=== PATIENT | female | born 1930 | race Caucasian/White ===

== ENCOUNTER 2018-10-01 22:09 | Inpatient (IN) | payer MEDICARE ==
[2018-10-01] MEDS ORDERED: SODIUM CHLORIDE 0.9% 1,000 ML IV STA (22:53)
[2018-10-01] MEDS ORDERED: ONDANSETRON 4 MG/2 ML VIAL IVP STA (22:53)
--- NOTE | 2018-10-01 22:53 | ED ---
Weakness HPI - General Chief complaint: Weakness Stated complaint: Weakness Time Seen by Provider: 10/01/18 22:38 Source: patient, EMS - History of Present Illness Initial comments: Maria Luisa is a pleasant 87-year-old female who is brought to the emergency department today via EMS for evaluation of generalized malaise, nausea and vomiting. Patient reports she hasn't been feeling well for couple of days however she didn't seek any care because she didn't want to rule in the holidays for her family. Patient reports she's been fatigued, however loss of appetite and been much more tired than usual. Patient states that today she had no appetite but she did have [place] dinner with her son. Her son states that he only noticed that she took some few nibbles of her food. A couple hours after eating the patient became nauseated and had multiple episodes of nonbloody nonbilious emesis. At that point son decided to bring her to the emergency department however the patient was too weak to stand even with her assistance he could not get her to the car therefore decision was made to call EMS. Patient denies any chest pain palpitations or shortness of breath. She does report some recent loose stools. She has been in contact with people who have had some similar symptoms including nausea, vomiting and diarrhea. - Related Data Home Medications Medication Instructions Recorded Confirmed Rivaroxaban [Xarelto] 15 mg PO DAILY 11/03/17 10/01/18 Brimonidine Tartrate/Timolol 1 drop BOTH EYES BID 10/01/18 10/01/18 [Combigan 0.2%-0.5% Eye Drops] Allergies Allergy/AdvReac Type Severity Reaction Status Date / Time morphine AdvReac Intermediate Nausea & Verified 10/01/18 23:14 Vomiting Sulfa (Sulfonamide AdvReac Intermediate Nausea & Verified 10/01/18 23:14 Antibiotics) Vomiting Mwqylat-Vvg-Xhz Reductase AdvReac Nausea Verified 10/01/18 23:14 Inhibitor Review of Systems ROS Statement: Those systems with pertinent positive or pertinent negative responses have been documented in the HPI. ROS Other: All systems not noted in ROS Statement are negative. Past Medical History Past Medical History: Chest Pain / Angina, Hypertension Additional Past Medical History / Comment(s): hypokalemia History of Any Multi-Drug Resistant Organisms: None Reported Past Surgical History: Cholecystectomy, Pacemaker Additional Past Surgical History / Comment(s): thyroidectomy Past Anesthesia/Blood Transfusion Reactions: No Reported Reaction Additional Past Anesthesia/Blood Transfusion Reaction / Comment(s): NEVER RECIEVED BLOOD. Type of Cardiac Device: Permanent Pacemaker Device Placement Date:: 2015 Past Psychological History: No Psychological Hx Reported, Depression Smoking Status: Former smoker Past Alcohol Use History: Rare Past Drug Use History: None Reported - Past Family History Father Family Medical History: Cancer, COPD Additional Family Medical History / Comment(s): FATHER OF LUNG [place] Mother Family Medical History: Cancer Additional Family Medical History / Comment(s): MOTHER OF SOME FORM OF CA WHEN PT WAS 2 YRS OLD. General Exam - General Exam Comments Initial Comments: Physical Exam GENERAL: Elderly female, appears uncomfortable, appears nauseated HENT: Normocephalic, Atraumatic. Dry oral mucosa EYES: PERRL, EOMI PULMONARY: Unlabored respirations. No audible rales rhonchi or wheezing was noted. CARDIOVASCULAR: There is a regular rate and rhythm without any murmurs gallops or rubs. ABDOMEN: Soft with normal bowel sounds. Tenderness to palpation in the epigastrium SKIN: Skin is clear with no lesions or rashes and otherwise unremarkable. : Deferred NEUROLOGIC: Patient is alert and oriented x3. Moving all extremities spontaneously MUSCULOSKELETAL: Normal extremities with adequate strength and full range of motion. No lower extremity swelling or edema. No calf tenderness. PSYCHIATRIC: Normal psychiatric evaluation. Limitations: no limitations Course Vital Signs 10/01/18 22:11 Pulse Rate 92 Respiratory 16 Rate Blood Pressure 198/73 O2 Sat by Pulse 97 Oximetry EKG Findings - EKG Comments: EKG Findings:: EKG obtained at 10:22 PM, rate is 89 rhythm is sinus, there is a first-degree AV block, UT 260, QRS 84, QTC 462. No acute ST elevations or depressions no evidence of acute ischemia or infarction. Medical Decision Making - Medical Decision Making Patient was seen and evaluated, history was obtained from the patient and family at bedside Labs and imaging were ordered Labs with multiple mild abnormalities including mildly elevated transaminases, elevated bili, elevated lipase, leukocytosis Computed tomography scan was ordered Patient was reevaluated, some improvement in nausea after Zofran, IV fluids are infusing Urinalysis suggestive of urinary tract infection, culture was ordered, Rocephin ordered Given the patient's advanced age, persistent nausea, multiple lab abnormalities I do feel that she would benefit from being admitted to the hospital for IV fluid rehydration and reevaluation of her labs in the morning. Patient is agreeable to this. Admission orders were placed. - Lab Data Result diagrams: 10/01/18 22:15 10/01/18 22:15 Lab Results 10/01/18 10/01/18 10/01/18 Range/Units 22:15 22:15 22:15 WBC 5.9 (3.8-10.6) k/uL RBC 3.60 L (3.80-5.40) m/uL Hgb 12.4 (11.4-16.0) gm/dL Hct 38.9 (34.0-46.0) % MCV 108.2 H (80.0-100.0) fL MCH 34.5 (25.0-35.0) pg MCHC 31.9 (31.0-37.0) g/dL RDW 15.0 (11.5-15.5) % Plt Count 56 L (150-450) k/uL Neutrophils % 81 % Lymphocytes % 9 % Monocytes % 5 % Eosinophils % 3 % Basophils % 0 % Neutrophils # 4.8 (1.3-7.7) k/uL Lymphocytes # 0.5 L (1.0-4.8) k/uL Monocytes # 0.3 (0-1.0) k/uL Eosinophils # 0.1 (0-0.7) k/uL Basophils # 0.0 (0-0.2) k/uL Macrocytosis Marked Sodium 140 (137-145) mmol/L Potassium 3.9 (3.5-5.1) mmol/L Chloride 108 H (98-107) mmol/L Carbon Dioxide 24 (22-30) mmol/L Anion Gap 8 mmol/L BUN 19 H (7-17) mg/dL Creatinine 0.67 (0.52-1.04) mg/dL Est GFR (CKD-EPI)AfAm >90 (>60 ml/min/1.73 sqM) Est GFR (CKD-EPI)NonAf 79 (>60 ml/min/1.73 sqM) Glucose 126 H (74-99) mg/dL Calcium 8.6 (8.4-10.2) mg/dL Total Bilirubin 2.2 H (0.2-1.3) mg/dL AST 61 H (14-36) U/L ALT 36 (9-52) U/L Alkaline Phosphatase 135 H (38-126) U/L Total Creatine Kinase 88 (30-135) U/L CK-MB (CK-2) 1.1 (0.0-2.4) ng/mL CK-MB (CK-2) Rel Index 1.3 Troponin I <0.012 (0.000-0.034) ng/mL Total Protein 7.9 (6.3-8.2) g/dL Albumin 3.4 L (3.5-5.0) g/dL Amylase 68 (30-110) U/L Lipase 307 H (23-300) U/L Urine Color Urine Appearance (Clear) Urine pH (5.0-8.0) Ur Specific Wells (1.001-1.035) Urine Protein (Negative) Urine Glucose (UA) (Negative) Urine Ketones (Negative) Urine Blood (Negative) Urine Nitrite (Negative) Urine Bilirubin (Negative) Urine Urobilinogen (<2.0) mg/dL Ur Leukocyte Esterase (Negative) Urine RBC (0-5) /hpf Urine WBC (0-5) /hpf Ur Squamous Epith Cells (0-4) /hpf Urine Bacteria (None) /hpf Urine Mucus (None) /hpf 10/02/18 Range/Units 00:33 WBC (3.8-10.6) k/uL RBC (3.80-5.40) m/uL Hgb (11.4-16.0) gm/dL Hct (34.0-46.0) % MCV (80.0-100.0) fL MCH (25.0-35.0) pg MCHC (31.0-37.0) g/dL RDW (11.5-15.5) % Plt Count (150-450) k/uL Neutrophils % % Lymphocytes % % Monocytes % % Eosinophils % % Basophils % % Neutrophils # (1.3-7.7) k/uL Lymphocytes # (1.0-4.8) k/uL Monocytes # (0-1.0) k/uL Eosinophils # (0-0.7) k/uL Basophils # (0-0.2) k/uL Macrocytosis Sodium (137-145) mmol/L Potassium (3.5-5.1) mmol/L Chloride (98-107) mmol/L Carbon Dioxide (22-30) mmol/L Anion Gap mmol/L BUN (7-17) mg/dL Creatinine (0.52-1.04) mg/dL Est GFR (CKD-EPI)AfAm (>60 ml/min/1.73 sqM) Est GFR (CKD-EPI)NonAf (>60 ml/min/1.73 sqM) Glucose (74-99) mg/dL Calcium (8.4-10.2) mg/dL Total Bilirubin (0.2-1.3) mg/dL AST (14-36) U/L ALT (9-52) U/L Alkaline Phosphatase (38-126) U/L Total Creatine Kinase (30-135) U/L CK-MB (CK-2) (0.0-2.4) ng/mL CK-MB (CK-2) Rel Index Troponin I (0.000-0.034) ng/mL Total Protein (6.3-8.2) g/dL Albumin (3.5-5.0) g/dL Amylase (30-110) U/L Lipase (23-300) U/L Urine Color Yellow Urine Appearance Cloudy H (Clear) Urine pH 5.5 (5.0-8.0) Ur Specific Wells 1.022 (1.001-1.035) Urine Protein Trace H (Negative) Urine Glucose (UA) Negative (Negative) Urine Ketones Trace H (Negative) Urine Blood Small H (Negative) Urine Nitrite Negative (Negative) Urine Bilirubin Negative (Negative) Urine Urobilinogen 2.0 (<2.0) mg/dL Ur Leukocyte Esterase Large H (Negative) Urine RBC 10 H (0-5) /hpf Urine WBC 58 H (0-5) /hpf Ur Squamous Epith Cells 24 H (0-4) /hpf Urine Bacteria Occasional H (None) /hpf Urine Mucus Few H (None) /hpf Disposition Clinical Impression: Dehydration, Transaminitis, Elevated bilirubin, Nausea and vomiting, UTI ( urinary tract infection) Disposition: ADMITTED IP TO THIS HOSP Condition: Stable Is patient prescribed a controlled substance at d/c from ED?: No Referrals: Alec Davidson MD [Primary Care Provider] - 1-2 days
[2018-10-01 23:19] LABS: Basophils % (A) 0 %; Eosinophils # (A) 0.1 k/uL (0-0.7); Eosinophils % (A) 3 %; HCT 38.9 % (34.0-46.0); HGB 12.4 gm/dL (11.4-16.0); Lymphocytes # (A) 0.5 k/uL (1.0-4.8); Lymphocytes % (A) 9 %; MCH 34.5 pg (25.0-35.0); MCHC 31.9 g/dL (31.0-37.0); MCV 108.2 fL (80.0-100.0); Macrocytosis Marked; Mean Platelet Volume 9.3; Monocytes # (A) 0.3 k/uL (0-1.0); Monocytes % (A) 5 %; Neutrophils # (A) 4.8 k/uL (1.3-7.7); Neutrophils % (A) 81 %; WBC 5.9 k/uL (3.8-10.6)
[2018-10-01 23:20] LABS: ALT 36 U/L (9-52); AST 61 U/L (14-36); Albumin 3.4 g/dL (3.5-5.0); Alkaline Phosphatase 135 U/L (38-126); Amylase 68 U/L (30-110); Anion Gap 8 mmol/L; Blood Urea Nitrogen 19 mg/dL (7-17); Calcium 8.6 mg/dL (8.4-10.2); Carbon Dioxide 24 mmol/L (22-30); Chloride 108 mmol/L (98-107); Glucose 126 mg/dL (74-99); Lipase 307 U/L (23-300); Potassium 3.9 mmol/L (3.5-5.1); Sodium 140 mmol/L (137-145); Total Bilirubin 2.2 mg/dL (0.2-1.3); Total Protein 7.9 g/dL (6.3-8.2)
[2018-10-01 23:39] LABS: Creatine Kinase 88 U/L (30-135)
[2018-10-01 23:43] LABS: Platelet Count 56 k/uL (150-450)
[2018-10-01 23:52] LABS: Creatine Kinase MB 1.1 ng/mL (0.0-2.4); Troponin I <0.012 ng/mL (0.000-0.034)
--- NOTE | 2018-10-02 00:02 | XR ---
EXAMINATION TYPE: XR KUB DATE OF EXAM: 10/01/2018 COMPARISON: NONE HISTORY: Vomiting TECHNIQUE: 2 views upright FINDINGS: There is no sign of intestinal obstruction or pneumoperitoneum. Fecal pattern is normal. Carine ng bases appear clear. There are no pathologic calcifications over the kidneys. IMPRESSION: Nonacute abdomen.
[2018-10-02 01:36] LABS: Appearance,Urine Cloudy (Clear); Bacteria,Urine Occasional /hpf; Bilirubin,Urine Negative (Negative); Blood,Urine Small (Negative); Color,Urine Yellow; Glucose,Urine (UA) Negative (Negative); Ketones,Urine Trace (Negative); Leukocyte Esterase,Urine Large (Negative); Mucus,Urine Few /hpf; Nitrite,Urine Negative (Negative); PH, Urine 5.5 (5.0-8.0); Protein,Urine Trace (Negative); RBC,Urine 10 /hpf (0-5); Specific Gravity,Urine 1.022 (1.001-1.035); Squamous Epithelial Cell,Urine 24 /hpf (0-4); WBC,Urine 58 /hpf (0-5)
--- NOTE | 2018-10-02 01:52 | CT ---
EXAMINATION TYPE: CT abdomen pelvis w con DATE OF EXAM: 10/02/2018 COMPARISON: 11/06/2014 HISTORY: vomiting CT DLP: 792.5 mGycm Automated exposure control for dose reduction was used. TECHNIQUE: Helical acquisition of images was performed from the lung bases through the pelvis. CONTRAST: Performed without Oral Contrast and with IV Contrast, patient injected with 100 mL of Isovue 300. FINDINGS: There is left pleural effusion. Heart is enlarged. There is no pericardial effusion. There is small h iatal hernia. Lung bases are clear of consolidation. Liver shows no focal defect. Gallbladder appears absent. There are multiple tiny calcified splenic gr anulomata. There is no evidence of pancreatic mass. There is no adrenal mass. Kidneys show satisfactory contrast opacification. There is no hydronephrosi s. There is no retroperitoneal adenopathy. Abdominal aorta is atheromatous. Appendix is not seen. The re is no evidence of a bowel obstruction. Bladder distends smoothly. There is pessary in the vagina. There is no inguinal hernia. There is no free fluid in the pelvis. I see no mesenteric edema. There a re multiple small mesenteric lymph nodes. There is degenerative disc space narrowing the lumbar spine . I see no compression fracture. Bony pelvis is intact. There is mild anterior wedging of T10 vertebr a with 20% loss of height. This is probably old. Fracture is new compared to old CT scan. IMPRESSION: OLD GRANULOMATOUS DISEASE. SMALL LEFT PLEURAL EFFUSION UNCHANGED. SMALL HIATAL HERNIA. CARDIOMEGALY. NO EVIDENCE OF A BOWEL OBSTRUCTION.
[2018-10-02] MEDS ORDERED: NALOXONE 0.4 MG/ML 1 ML VIAL IV PRN (02:10)
[2018-10-02] MEDS: SODIUM CHLORIDE 0.9% 1,000 ML IV SCH ×2 (03:06→17:02)
[2018-10-02 03:57] VITALS: BMI 27.9
[2018-10-02] MEDS: FAMOTIDINE 20 MG TAB PO SCH ×2 (08:47→21:02)
[2018-10-02] MEDS: ONDANSETRON 4 MG/2 ML VIAL IVP PRN (15:48)
--- NOTE | 2018-10-02 17:16 | HP ---
HISTORY AND PHYSICAL CHIEF COMPLAINT: Generalized weakness, dehydration, nausea, vomiting, and probable UTI. HISTORY OF PRESENT ILLNESS: This is another admission for this 87-year-old white female. She is ordinarily in fairly good health. She has had some problems with mild hypertension and atrial fibrillation. For about 2 days she has not felt well, has not been eating well. On the night of admission she suddenly developed chills, weakness, nausea and vomiting and no diarrhea. She came to the emergency room, where she was dehydrated, and urine suggested that she had UTI. She was admitted. REVIEW OF SYSTEMS: She denies any headaches, confusion, cough, hemoptysis, shortness of breath, chest pain, abdominal pain, etc. Past medical history, family history, and personal and social histories are all otherwise unremarkable and noncontributory. She does not smoke. PHYSICAL EXAMINATION: Blood pressure is 136/83 with a pulse of 92 and regular. Respirations were 36 and she was afebrile. In general, she appeared to be pale and dehydrated. Skin was dry. Mucous membranes were dry. Head, ears, eyes, nose, mouth and throat were otherwise normal. There was no neck vein distention. Chest was clear. There were no rales or rhonchi. Cardiac exam demonstrated regular rate and rhythm. The abdomen was soft. Bowel sounds were heard. There were no masses or visceromegaly and she was not tender. Extremities were normal. Neurologically she was intact. She is admitted to the hospital with the diagnoses: 1. Probable urinary tract infection. 2. Dehydration. 3. History of atrial fibrillation. 4. History of hypertension. PLAN: 1. Bed rest. 2. IV fluids. 3. IV antibiotics. 4. Rehydrate. MMODL / IJN: [id number] /
[2018-10-02] MEDS: DEXTROSE 5%-0.45% NACL 1,000 ML IV SCH (18:29)
[2018-10-02] MEDS: BRIMONIDINE TARTRATE 0.2% DROPS 5 ML BTL BOTH EYES SCH (21:02)
[2018-10-02] MEDS: TIMOLOL 0.5% OPHTH DROPS 5 ML BTL BOTH EYES SCH (21:03)
[2018-10-02] MEDS ORDERED: ALBUTEROL NEBULIZED 2.5 MG/3 ML INHALATION PRN (21:17)
--- NOTE | 2018-10-02 21:57 | XR ---
EXAMINATION TYPE: XR chest 2V DATE OF EXAM: 10/02/2018 COMPARISON: 11/03/2017 HISTORY: Wheezing TECHNIQUE: Frontal and lateral views of the chest are obtained. FINDINGS: Heart is enlarged. There is pulmonary interstitial edema. There is slight blunting of cost ophrenic angles. There is left axillary pacemaker with the lead tips in the right ventricle. IMPRESSION: Mild heart failure. Small pleural effusions. Heart failure increased compared to last ex am.
[2018-10-02] MEDS: ALBUTEROL NEBULIZED 2.5 MG/3 ML INHALATION SCH (23:53)
[2018-10-03] MEDS: ALBUTEROL NEBULIZED 2.5 MG/3 ML INHALATION SCH ×5 (03:08→19:00)
[2018-10-03] MEDS: FAMOTIDINE 20 MG TAB PO SCH (08:29)
[2018-10-03] MEDS: BRIMONIDINE TARTRATE 0.2% DROPS 5 ML BTL BOTH EYES SCH ×2 (08:29→20:45)
[2018-10-03] MEDS: TIMOLOL 0.5% OPHTH DROPS 5 ML BTL BOTH EYES SCH ×2 (08:29→20:45)
[2018-10-03] MEDS ORDERED: RIVAROXABAN 15 MG TAB PO SCH (09:00)
[2018-10-03 09:59] LABS: Albumin 2.7 g/dL (3.5-5.0); Calcium 7.3 mg/dL (8.4-10.2); Magnesium 1.5 mg/dL (1.6-2.3); Potassium 3.9 mmol/L (3.5-5.1); Total Bilirubin 2.2 mg/dL (0.2-1.3); Total Protein 6.8 g/dL (6.3-8.2)
[2018-10-03 10:08] LABS: HCT 33.5 % (34.0-46.0); HGB 10.7 gm/dL (11.4-16.0); MCH 34.8 pg (25.0-35.0); MCHC 31.8 g/dL (31.0-37.0); MCV 109.3 fL (80.0-100.0); Macrocytosis Marked; Mean Platelet Volume 9.1; RBC 3.06 m/uL (3.80-5.40); WBC 2.3 k/uL (3.8-10.6)
[2018-10-03 10:29] LABS: Basophils # (M) 0.05 k/uL (0-0.2); Eosinophils # (M) 0.16 k/uL (0-0.7); Lymphocytes # (M) 0.32 k/uL (1.0-4.8); Monocytes # (M) 0.28 k/uL (0-1.0); Neutrophils % (M) 65 %; Nucleated Red Blood Cells 0 /100 WBC (0-0); Total Cells Counted 100
[2018-10-03 11:41] LABS: Platelet Count 41 k/uL (150-450)
[2018-10-03] MEDS ORDERED: CALCIUM CARBONATE 500 MG CHEWABLE PO PRN (13:46)
[2018-10-03 15:19] LABS: HCT 33.4 % (34.0-46.0); HGB 10.7 gm/dL (11.4-16.0); MCH 35.5 pg (25.0-35.0); MCHC 32.2 g/dL (31.0-37.0); MCV 110.3 fL (80.0-100.0); Macrocytosis Marked; Mean Platelet Volume 10.3; RBC 3.02 m/uL (3.80-5.40); RDW 14.9 % (11.5-15.5); Reticulocyte % 2.6 % (0.5-2.0); WBC 2.3 k/uL (3.8-10.6)
[2018-10-03 15:35] LABS: Amylase 54 U/L (30-110); LDH 826 U/L (313-618); Lipase 282 U/L (23-300)
[2018-10-03 15:53] LABS: INR 2.2 (<1.2); Partial Thromboplastin Time 39.3 sec (22.0-30.0); Prothrombin Time 21.6 sec (9.0-12.0)
[2018-10-03 16:26] LABS: Eosinophils # (M) 0.12 k/uL (0-0.7); Large Platelets Present; Lymphocytes # (M) 0.64 k/uL (1.0-4.8); Monocytes # (M) 0.46 k/uL (0-1.0); Neutrophils # (M) 1.08 k/uL (1.3-7.7); Neutrophils % (M) 47 %; Nucleated Red Blood Cells 0 /100 WBC (0-0); Platelet Count 35 k/uL (150-450); Total Cells Counted 100
[2018-10-03] MEDS: AMPICILLIN-SULBACTAM 1.5 GM in SODIUM CHLORIDE 0.9% 50 ML IVPB SCH ×2 (16:53→23:49)
--- NOTE | 2018-10-03 18:44 | PN ---
PROGRESS NOTE CHIEF COMPLAINT: Urinary tract infection. HISTORY OF PRESENT ILLNESS: This lady is doing a little bit better. Hydration is improved. She did have a little wheezing during the night, but no chest pain, fever, chills, cough, etc. Her CBC is surprising with a low WBC count, hemoglobin and platelet count. PHYSICAL EXAMINATION: Hydration is improved. Her chest is clear. There are no significant rales or rhonchi. Cardiac exam is normal. Abdomen is soft, nontender. IMPRESSION: 1. Urinary tract infection. 2. Pancytopenia. 3. Dehydration. PLAN: 1. Hematology consult. 2. Continue with IV fluids and antibiotics. MMODL / IJN: [id number] /
[2018-10-03] MEDS: DEXTROSE 5%-0.45% NACL 1,000 ML IV SCH ×3 (20:14→23:50)
[2018-10-03 21:37] LABS: Glucose,Whole Blood 139 mg/dL (75-99)
--- NOTE | 2018-10-03 23:15 | P.CONS ---
History of Present Illness - Reason for Consult Consult date: 10/03/18 Pancytopenia Requesting physician: Alec Davidson - Chief Complaint Weakness, UTI - History of Present Illness Ms. Menon is a pleasant 87 year old female who was initially seen by Dr Vivas in 2016 for intermitent lekopenia and thrombocytopenia. At this time her platelets ranged in the 35-40K range. Her prior history shows records of clumping of her platelets when drawn in a citrated CBC, therefore causing artefactually low platlet counts, which was felt to be underestimated. SHe did undergo full thrombocytopenia work-up at this intial consult without any identifiable evidence of differential etiology. Ms. Menon requires her platlet count to be ran in a citrate tube, but ran immediately, for a more accurate level to be obtained. She is on xarelto for known atrial fibrillation. She presented to hospital with increased weakness and currently being treated for UTI with antibiotics. Her resulted platlet count today is 35k. With her known history of underestimated thrombocytopenia, it is recommended her CBC in AM be drawn in a citrate tube and will be instructed to be ran immediately for a more accurate results, although there is some unavoidable delays in processing with this an accurate level maybe difficult to obtain. Since her baseline is a mild thrombocytopenia at the last follow-up with Ms. Menon it was felt she may have mild early signs of MDS or ITP. She was last seen by Dr. Vivas in early 2017. With her presentation of acute infection and a platlet count less than 50K without knowing if accurate result it is recommended to hold xarelto morning dose and attempt to obtain an immediate run sample, as acute infection may cause a further decrease in platlet counts. no evidence of acute bleeding noted, although she does present with lymphocytopenia and anemia this admission. Review of Systems A 14 point review of systems was assessed and completed and all negative except HPI Past Medical History Past Medical History: Atrial Fibrillation, Chest Pain / Angina, Hyperlipidemia, Hypertension, Syncope Additional Past Medical History / Comment(s): hypokalemia, 1st degree heart block, macular degeneration, glaucoma History of Any Multi-Drug Resistant Organisms: None Reported Past Surgical History: Cholecystectomy, Pacemaker Additional Past Surgical History / Comment(s): thyroidectomy Past Anesthesia/Blood Transfusion Reactions: No Reported Reaction Additional Past Anesthesia/Blood Transfusion Reaction / Comm: NEVER RECIEVED BLOOD. Type of Cardiac Device: Permanent Pacemaker Device Placement Date:: 2015 Past Psychological History: No Psychological Hx Reported, Depression Additional Psychological History / Comment(s): PT LIVES CURRENTLY WITH MOO GAYTAN) AND LUCILA'S . NORMALLY BEFORE THIS WEAKNESS SHE HAS BEEN INDEPENDENT WITH HER OWN ADL'S. SHE HAS VOLUNTARILY GIVEN UP DRIVING. Smoking Status: Former smoker Past Alcohol Use History: Rare Past Drug Use History: None Reported - Past Family History Father Family Medical History: Cancer, COPD Additional Family Medical History / Comment(s): FATHER OF LUNG [place] Mother Family Medical History: Cancer Additional Family Medical History / Comment(s): MOTHER OF SOME FORM OF CA WHEN PT WAS 2 YRS OLD. Medications and Allergies Home Medications Medication Instructions Recorded Confirmed Type Rivaroxaban [Xarelto] 15 mg PO DAILY 11/03/17 10/01/18 History Brimonidine Tartrate/Timolol 1 drop BOTH EYES BID 10/01/18 10/01/18 History [Combigan 0.2%-0.5% Eye Drops] Allergies Allergy/AdvReac Type Severity Reaction Status Date / Time morphine AdvReac Intermediate Nausea & Verified 10/01/18 23:14 Vomiting Sulfa (Sulfonamide AdvReac Intermediate Nausea & Verified 10/01/18 23:14 Antibiotics) Vomiting Whirhiw-Ndr-Fpg Reductase AdvReac Nausea Verified 10/01/18 23:14 Inhibitor Physical Exam Vitals: Vital Signs Temp Pulse Pulse Resp BP Pulse Ox 10/03/18 12:06 82 10/03/18 11:58 84 10/03/18 07:29 84 10/03/18 07:21 84 10/03/18 07:15 98.6 F 71 18 167/68 95 10/03/18 04:00 18 10/03/18 00:00 18 10/02/18 23:09 99.2 F 69 18 125/68 94 L 10/02/18 21:28 99.2 F 18 96 10/02/18 20:00 18 10/02/18 19:33 100.2 F H 76 18 101/61 93 L Intake and Output 10/02/18 10/03/18 10/03/18 22:59 06:59 14:59 Intake Total 836 354 Balance 836 354 Intake: Oral 836 354 Other: Voiding Method Toilet Toilet # Voids 2 3 - Constitutional General appearance: cooperative, no acute distress - EENT Eyes: EOMI, dentition normal ENT: hard of hearing, NA/AT, normal oropharynx - Neck no lymphadenopathy Neck: normal ROM - Respiratory Respiratory: bilateral: diminished (bases) - Cardiovascular Rhythm: irregularly irregular - Gastrointestinal General gastrointestinal: normal bowel sounds, soft - Integumentary Integumentary: pale - Neurologic Neurologic: CNII-XII intact - Musculoskeletal Musculoskeletal: generalized weakness, strength equal bilaterally - Psychiatric Psychiatric: appropriate affect Results CBC & Chem 7: 10/03/18 14:49 10/03/18 08:58 Labs: Abnormal Lab Results - Last 24 Hours (Table) 10/03/18 10/03/18 Range/Units 08:58 08:58 WBC 2.3 L (3.8-10.6) k/uL RBC 3.06 L (3.80-5.40) m/uL Hgb 10.7 L (11.4-16.0) gm/dL Hct 33.5 L (34.0-46.0) % MCV 109.3 H (80.0-100.0) fL Plt Count 41 L (150-450) k/uL Lymphocytes # (Manual) 0.32 L (1.0-4.8) k/uL Chloride 108 H (98-107) mmol/L BUN 18 H (7-17) mg/dL Glucose 169 H (74-99) mg/dL Calcium 7.3 L (8.4-10.2) mg/dL Magnesium 1.5 L (1.6-2.3) mg/dL Total Bilirubin 2.2 H (0.2-1.3) mg/dL AST 89 H (14-36) U/L Albumin 2.7 L (3.5-5.0) g/dL Microbiology - Last 24 Hours (Table) 10/02/18 00:33 Urine Culture - Preliminary Urine,Clean Catch Presumptive Staph aureus Chest x-ray: report reviewed CT scan - abdomen: report reviewed CT scan - pelvis: report reviewed Assessment and Plan Plan: Assessment and Recommendations: 1. 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 Will attempt to re-drawn in am 12-28 , and run immediately. Although with concurrent acute infection cannot rule out accurate thrombocytopenia as her history has a mild thrombocytopenia at baseline and an infection may contribute to worsening of this. - Redraw in citrate tube and run immediately - Re-work-up other causes (greater than 2 years, last 2015) - Patient is on Xarelto, would currently hold with platlet count less than 50K. To ensure an accurate level for safety. - INR increased (possible component of decreased appetite and vitamin K deficiency), monitor and recheck in am We will continue to follow.
[2018-10-04] MEDS: ALBUTEROL NEBULIZED 2.5 MG/3 ML INHALATION SCH ×7 (00:53→23:20)
[2018-10-04 03:50] LABS: Protein, Total 5.9 g/dL (6.2-8.2)
[2018-10-04 04:18] LABS: Hemoglobin A1C 6.1 % (4.0-6.0)
[2018-10-04 04:32] LABS: Iron Saturation 19.75 (12.00-45.00)
[2018-10-04 05:14] LABS: Folate, Serum 15.5 ng/mL
[2018-10-04 05:48] LABS: Basophils % (A) 0 %; Eosinophils # (A) 0.2 k/uL (0-0.7); Eosinophils % (A) 8 %; Lymphocytes # (A) 0.6 k/uL (1.0-4.8); Lymphocytes % (A) 22 %; MCH 34.8 pg (25.0-35.0); MCHC 32.1 g/dL (31.0-37.0); MCV 108.7 fL (80.0-100.0); Macrocytosis Marked; Mean Platelet Volume 11.8; Monocytes # (A) 0.4 k/uL (0-1.0); Monocytes % (A) 13 %; Neutrophils # (A) 1.5 k/uL (1.3-7.7); Neutrophils % (A) 53 %; RDW 14.7 % (11.5-15.5)
[2018-10-04 05:50] LABS: INR 1.7 (<1.2); Prothrombin Time 16.9 sec (9.0-12.0)
[2018-10-04 06:08] LABS: ALT 39 U/L (9-52); AST 79 U/L (14-36); Albumin 2.5 g/dL (3.5-5.0); Alkaline Phosphatase 103 U/L (38-126); Anion Gap 6 mmol/L; Blood Urea Nitrogen 12 mg/dL (7-17); Calcium 7.3 mg/dL (8.4-10.2); Carbon Dioxide 23 mmol/L (22-30); Chloride 109 mmol/L (98-107); Glucose 140 mg/dL (74-99); Potassium 3.9 mmol/L (3.5-5.1); Sodium 138 mmol/L (137-145); Total Bilirubin 1.5 mg/dL (0.2-1.3); Total Protein 6.5 g/dL (6.3-8.2)
[2018-10-04 06:16] LABS: Platelet Count 43 k/uL (150-450)
[2018-10-04 06:25] LABS: HGB 10.7 gm/dL (11.4-16.0); RBC 3.08 m/uL (3.80-5.40)
[2018-10-04 06:26] LABS: HCT 33.7 % (34.0-46.0)
[2018-10-04 06:43] LABS: Hepatitis A Antibody IgM Non-Reactive (Non-Reactive); Hepatitis B Core IgM Non-Reactive (Non-Reactive)
[2018-10-04 07:25] LABS: Anisocytosis (M) Present; Polychromasia Present
[2018-10-04 07:36] LABS: Glucose,Whole Blood 140 mg/dL (75-99)
[2018-10-04] MEDS: FAMOTIDINE 20 MG TAB PO SCH (08:39)
[2018-10-04] MEDS: AMPICILLIN-SULBACTAM 1.5 GM in SODIUM CHLORIDE 0.9% 50 ML IVPB SCH ×2 (08:39→17:21)
[2018-10-04] MEDS: DEXTROSE 5%-0.45% NACL 1,000 ML IV SCH ×2 (08:40→17:24)
[2018-10-04] MEDS: BRIMONIDINE TARTRATE 0.2% DROPS 5 ML BTL BOTH EYES SCH ×2 (08:40→19:53)
[2018-10-04] MEDS: TIMOLOL 0.5% OPHTH DROPS 5 ML BTL BOTH EYES SCH ×2 (08:40→19:53)
[2018-10-04 12:27] LABS: Glucose,Whole Blood 130 mg/dL (75-99)
--- NOTE | 2018-10-04 12:39 | P.PN ---
Subjective Progress Note Date: 10/04/18 Principal diagnosis: pancytopenia Platlet count redraw 42K today. Objective - Vital Signs Vital signs: Vital Signs Temp 98.3 F 10/04/18 06:30 Pulse 72 10/04/18 11:39 Resp 18 10/04/18 06:30 BP 178/73 10/04/18 06:30 Pulse Ox 95 10/04/18 06:30 Intake & Output 10/03/18 10/04/18 10/04/18 18:59 06:59 18:59 Intake Total 554 Balance 554 Weight 73.9 kg Intake: Oral 554 Other: Voiding Method Toilet Toilet # Voids 1 3 - Exam - Constitutional General appearance: cooperative, no acute distress - EENT Eyes: EOMI, dentition normal ENT: hard of hearing, NA/AT, normal oropharynx - Neck no lymphadenopathy Neck: normal ROM - Respiratory Respiratory: bilateral: diminished (bases) - Cardiovascular Rhythm: irregularly irregular - Gastrointestinal General gastrointestinal: normal bowel sounds, soft - Integumentary Integumentary: pale - Neurologic Neurologic: CNII-XII intact - Musculoskeletal Musculoskeletal: generalized weakness, strength equal bilaterally - Psychiatric Psychiatric: appropriate affect - Labs CBC & Chem 7: 10/04/18 05:15 10/04/18 05:15 Labs: Abnormal Lab Results - Last 24 Hours (Table) 10/03/18 10/03/18 10/03/18 Range/Units 14:49 14:49 14:58 WBC 2.3 L (3.8-10.6) k/uL RBC 3.02 L (3.80-5.40) m/uL Hgb 10.7 L (11.4-16.0) gm/dL Hct 33.4 L (34.0-46.0) % MCV 110.3 H (80.0-100.0) fL MCH 35.5 H (25.0-35.0) pg Plt Count 35 L (150-450) k/uL Neutrophils # (Manual) 1.08 L (1.3-7.7) k/uL Lymphocytes # (1.0-4.8) k/uL Lymphocytes # (Manual) 0.64 L (1.0-4.8) k/uL Retic Count 2.6 H (0.5-2.0) % PT 21.6 H (9.0-12.0) sec INR 2.2 H (<1.2) APTT 39.3 H (22.0-30.0) sec Chloride (98-107) mmol/L Glucose (74-99) mg/dL POC Glucose (mg/dL) (75-99) mg/dL Hemoglobin A1c (4.0-6.0) % Calcium (8.4-10.2) mg/dL Total Bilirubin (0.2-1.3) mg/dL AST (14-36) U/L Lactate Dehydrogenase 826 H (313-618) U/L Total Protein (PEP) (6.2-8.2) g/dL Albumin (3.5-5.0) g/dL 10/03/18 10/03/18 10/03/18 Range/Units 14:58 14:58 21:18 WBC (3.8-10.6) k/uL RBC (3.80-5.40) m/uL Hgb (11.4-16.0) gm/dL Hct (34.0-46.0) % MCV (80.0-100.0) fL MCH (25.0-35.0) pg Plt Count (150-450) k/uL Neutrophils # (Manual) (1.3-7.7) k/uL Lymphocytes # (1.0-4.8) k/uL Lymphocytes # (Manual) (1.0-4.8) k/uL Retic Count (0.5-2.0) % PT (9.0-12.0) sec INR (<1.2) APTT (22.0-30.0) sec Chloride (98-107) mmol/L Glucose (74-99) mg/dL POC Glucose (mg/dL) 139 H (75-99) mg/dL Hemoglobin A1c 6.1 H (4.0-6.0) % Calcium (8.4-10.2) mg/dL Total Bilirubin (0.2-1.3) mg/dL AST (14-36) U/L Lactate Dehydrogenase (313-618) U/L Total Protein (PEP) 5.9 L (6.2-8.2) g/dL Albumin (3.5-5.0) g/dL 10/04/18 10/04/18 10/04/18 Range/Units 05:15 05:15 05:15 WBC 3.0 L (3.8-10.6) k/uL RBC 3.08 L (3.80-5.40) m/uL Hgb 10.7 L (11.4-16.0) gm/dL Hct 33.7 L (34.0-46.0) % MCV 108.7 H (80.0-100.0) fL MCH (25.0-35.0) pg Plt Count 43 L (150-450) k/uL Neutrophils # (Manual) (1.3-7.7) k/uL Lymphocytes # 0.6 L (1.0-4.8) k/uL Lymphocytes # (Manual) (1.0-4.8) k/uL Retic Count (0.5-2.0) % PT 16.9 H (9.0-12.0) sec INR 1.7 H (<1.2) APTT (22.0-30.0) sec Chloride 109 H (98-107) mmol/L Glucose 140 H (74-99) mg/dL POC Glucose (mg/dL) (75-99) mg/dL Hemoglobin A1c (4.0-6.0) % Calcium 7.3 L (8.4-10.2) mg/dL Total Bilirubin 1.5 H (0.2-1.3) mg/dL AST 79 H (14-36) U/L Lactate Dehydrogenase (313-618) U/L Total Protein (PEP) (6.2-8.2) g/dL Albumin 2.5 L (3.5-5.0) g/dL 10/04/18 10/04/18 Range/Units 07:34 12:25 WBC (3.8-10.6) k/uL RBC (3.80-5.40) m/uL Hgb (11.4-16.0) gm/dL Hct (34.0-46.0) % MCV (80.0-100.0) fL MCH (25.0-35.0) pg Plt Count (150-450) k/uL Neutrophils # (Manual) (1.3-7.7) k/uL Lymphocytes # (1.0-4.8) k/uL Lymphocytes # (Manual) (1.0-4.8) k/uL Retic Count (0.5-2.0) % PT (9.0-12.0) sec INR (<1.2) APTT (22.0-30.0) sec Chloride (98-107) mmol/L Glucose (74-99) mg/dL POC Glucose (mg/dL) 140 H 130 H (75-99) mg/dL Hemoglobin A1c (4.0-6.0) % Calcium (8.4-10.2) mg/dL Total Bilirubin (0.2-1.3) mg/dL AST (14-36) U/L Lactate Dehydrogenase (313-618) U/L Total Protein (PEP) (6.2-8.2) g/dL Albumin (3.5-5.0) g/dL Microbiology - Last 24 Hours (Table) 10/02/18 00:33 Urine Culture - Final Urine,Clean Catch Staphylococcus aureus Assessment and Plan Plan: Assessment and Recommendations: 1. 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 Will attempt to re-drawn in am 12-28 , and run immediately. Although with concurrent acute infection cannot rule out accurate thrombocytopenia as her history has a mild thrombocytopenia at baseline and an infection may contribute to worsening of this. - Re-work-up other causes (greater than 2 years, last 2015) - Patient is on Xarelto, would currently hold with platlet count less than 50K. To ensure an accurate level for safety. - Redraw in citrate tube and run immediately again on 10/05/18, may resume xarelto as long as closer to 50K in am. We will continue to follow.
--- NOTE | 2018-10-04 12:56 | CDI ---
Documentation Clarification Form Date: 10/04/2018 12:50:50 PM From: Salina PetersenRaiHERMELINDA wilks, CCDS Admit Date: 10/02/2018 11:04:00 PM Patient Name: Maria Luisa Menon Visit Number: [id number] Discharge Date: ATTENTION: The Clinical Documentation Specialists (CDI) and [facility] Coding Staff appreciate your assistance in clarifying documentation. Please respond to the clarification below the line at the bottom and electronically sign. The CDI & [facility] Coding staff will review the response and follow-up if needed. Please note: Queries are made part of the Legal Health Record. If you have any questions, please contact the author of this message via ITS. Dr. Alec Davidson: Atrial Fibrillation is documented in the ED note & History & Physical. Patient is on Xarelto for Atrial fibrillation.. History/Risk Factors: A Fib, Thrombocytopenia, Hypertension, Clinical Indicators: Presented with malaise, nausea & vomiting. HR 92 - 82 - 72 EKG/telemetry: R 89 sinus rhythm w/1st deg AV block, Right atrial enlargement, Anterior infarct, age undetermined; T wave abn consider inferior ischemia. Treatment: IV Zofran, IV fluid bolus, IV Rocephin, IV Dextrose/Na Cl Consults: Hematology re low platelets, ruling out MDS or ITP. In your professional opinion, can you please clarify the type of Atrial Fibrillation, if known? Chronic/Permanent Paroxysmal Persistent Other, please specify Unable to determine (Last Revision: January 2018) MTDD
[2018-10-04] MEDS: LISINOPRIL 20 MG TAB PO SCH (18:50)
[2018-10-05] MEDS: AMPICILLIN-SULBACTAM 1.5 GM in SODIUM CHLORIDE 0.9% 50 ML IVPB SCH ×3 (00:24→15:38)
[2018-10-05] MEDS: DEXTROSE 5%-0.45% NACL 1,000 ML IV SCH ×3 (00:27→15:39)
[2018-10-05] MEDS: ALBUTEROL NEBULIZED 2.5 MG/3 ML INHALATION SCH ×6 (03:56→23:32)
[2018-10-05] MEDS: LISINOPRIL 20 MG TAB PO SCH (08:06)
[2018-10-05] MEDS: FAMOTIDINE 20 MG TAB PO SCH (08:06)
[2018-10-05] MEDS: BRIMONIDINE TARTRATE 0.2% DROPS 5 ML BTL BOTH EYES SCH ×2 (08:35→21:47)
[2018-10-05] MEDS: TIMOLOL 0.5% OPHTH DROPS 5 ML BTL BOTH EYES SCH ×2 (08:36→21:47)
[2018-10-05 10:05] LABS: MCH 35.7 pg (25.0-35.0); MCHC 33.4 g/dL (31.0-37.0); MCV 106.8 fL (80.0-100.0); Macrocytosis Moderate; RDW 14.8 % (11.5-15.5)
[2018-10-05 10:12] LABS: HGB 11.7 gm/dL (11.4-16.0); Mean Platelet Volume 9.8; RBC 3.28 m/uL (3.80-5.40); WBC 3.5 k/uL (3.8-10.6)
[2018-10-05 10:13] LABS: Platelet Count 51 k/uL (150-450)
[2018-10-05 12:27] LABS: Band Neutrophils % 1 %; Eosinophils # (M) 0.14 k/uL (0-0.7); Monocytes # (M) 0.32 k/uL (0-1.0); Neutrophils % (M) 66 %; Nucleated Red Blood Cells 0 /100 WBC (0-0); Total Cells Counted 100
--- NOTE | 2018-10-05 14:01 | P.PN ---
Subjective Progress Note Date: 10/05/18 Principal diagnosis: pancytopenia Platlet count greater than 50K, will restart Xarelto and check CMP Objective - Vital Signs Vital signs: Vital Signs Temp 98.9 F 10/05/18 06:00 Pulse 72 10/05/18 11:59 Resp 16 10/05/18 11:49 BP 156/75 10/05/18 06:00 Pulse Ox 94 L 10/05/18 06:00 Intake & Output 10/04/18 10/05/18 10/05/18 18:59 06:59 18:59 Intake Total 900 200 200 Balance 900 200 200 Weight 73.9 kg Intake: Oral 900 200 200 Other: # Voids 2 2 - Exam - Constitutional General appearance: cooperative, no acute distress - EENT Eyes: EOMI, dentition normal ENT: hard of hearing, NA/AT, normal oropharynx - Neck no lymphadenopathy Neck: normal ROM - Respiratory Respiratory: bilateral: diminished (bases), expiratory wheezes noted - Cardiovascular Rhythm: irregularly irregular - Gastrointestinal General gastrointestinal: normal bowel sounds, soft - Integumentary Integumentary: pale - Neurologic Neurologic: CNII-XII intact - Musculoskeletal Musculoskeletal: generalized weakness, strength equal bilaterally - Psychiatric Psychiatric: appropriate affect - Labs CBC & Chem 7: 10/05/18 07:59 10/05/18 14:37 Labs: Abnormal Lab Results - Last 24 Hours (Table) 10/03/18 10/05/18 Range/Units 14:58 07:59 WBC 3.5 L (3.8-10.6) k/uL RBC 3.28 L (3.80-5.40) m/uL MCV 106.8 H (80.0-100.0) fL MCH 35.7 H (25.0-35.0) pg Plt Count 51 L (150-450) k/uL Lymphocytes # (Manual) 0.70 L (1.0-4.8) k/uL IgG 2180.0 H (700.0-1600.0) mg/dL IgA 668.0 H (60.0-350.0) mg/dL Microbiology - Last 24 Hours (Table) 10/02/18 00:33 Urine Culture - Final Urine,Clean Catch Staphylococcus aureus Assessment and Plan Plan: Assessment and Recommendations: 1. 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 Will attempt to re-drawn in am 12-28 , and run immediately. Although with concurrent acute infection cannot rule out accurate thrombocytopenia as her history has a mild thrombocytopenia at baseline and an infection may contribute to worsening of this. - Re-work-up other causes (greater than 2 years, last 2015) - Redraw in citrate tube and run immediately again on 10/06/18, in mean time may resume xarelto as platlet count is greater than 50K today - Would monitor to ensure this remains above 50K for next 24-48 hours. - Discussed in full with patient today - Encourage patient to increase activity, with assistance, if PT is not already following may benefot from consultation to decrease debility and muscle atrophy, also recommend incentive spirometer to bedside. Physcian Attestation: I have completed the full history and physical of this patient and agree with above dictation by Sharon Amaya NP Dictated as a scribe. We will continue to follow.
[2018-10-05 15:15] LABS: ALT 39 U/L (9-52); AST 63 U/L (14-36); Albumin 2.5 g/dL (3.5-5.0); Alkaline Phosphatase 98 U/L (38-126); Anion Gap 5 mmol/L; Blood Urea Nitrogen 11 mg/dL (7-17); Calcium 7.9 mg/dL (8.4-10.2); Carbon Dioxide 24 mmol/L (22-30); Chloride 108 mmol/L (98-107); Glucose 161 mg/dL (74-99); Potassium 3.9 mmol/L (3.5-5.1); Sodium 137 mmol/L (137-145); Total Bilirubin 1.3 mg/dL (0.2-1.3); Total Protein 6.5 g/dL (6.3-8.2)
[2018-10-05] MEDS: RIVAROXABAN 15 MG TAB PO SCH (15:38)
--- NOTE | 2018-10-05 15:43 | PN ---
PROGRESS NOTE DATE OF SERVICE: 10/04/2018. CHIEF COMPLAINT: Urinary tract infection, pancytopenia and hypertension. HISTORY OF PRESENT ILLNESS: This lady is doing fairly well and she is improving as she is rehydrated. Blood pressure did rise and this will be treated. PHYSICAL EXAM: Color is better and hydration is improved. Chest is clear. Cardiac exam is normal. Abdomen is soft, nontender. IMPRESSION: 1. Urinary tract infection. 2. Septicemia. 3. Pancytopenia. 4. Hypertension. PLAN: 1. Continue evaluation of her pancytopenia. 2. Continue with IV antibiotics. 3. Continue with rehydration. 4. Treat hypertension. MMODL / IJN: [id number] /
--- NOTE | 2018-10-05 16:37 | PN ---
PROGRESS NOTE CHIEF COMPLAINT: Urinary tract infection, pancytopenia and hypertension. HISTORY OF PRESENT ILLNESS: This lady is doing a little bit better. Blood pressure is down. She is feeling a little bit better. She has no fever, chills, nausea, abdominal pain, etc. PHYSICAL EXAM: Chest is clear. Cardiac exam is normal. Abdomen is soft and nontender. She is a little bit wheezy. IMPRESSION: 1. Urinary tract infection. 2. Hypertension. 3. Mild bronchospasm. PLAN: No change in program at this time, except to possibly start updrafts if she continues to have difficulty. MMODL / IJN: [id number] /
[2018-10-06] MEDS: AMPICILLIN-SULBACTAM 1.5 GM in SODIUM CHLORIDE 0.9% 50 ML IVPB SCH ×3 (00:32→15:35)
[2018-10-06] MEDS: ALBUTEROL NEBULIZED 2.5 MG/3 ML INHALATION SCH ×5 (03:37→21:01)
[2018-10-06] MEDS: DEXTROSE 5%-0.45% NACL 1,000 ML IV SCH ×3 (03:54→15:35)
[2018-10-06] MEDS: ONDANSETRON 4 MG/2 ML VIAL IVP PRN (03:55)
[2018-10-06 07:20] LABS: MCHC 32.4 g/dL (31.0-37.0); MCV 107.9 fL (80.0-100.0); Macrocytosis Marked; Mean Platelet Volume 10.5
[2018-10-06] MEDS: TIMOLOL 0.5% OPHTH DROPS 5 ML BTL BOTH EYES SCH ×2 (08:04→20:55)
[2018-10-06] MEDS: BRIMONIDINE TARTRATE 0.2% DROPS 5 ML BTL BOTH EYES SCH ×2 (08:04→20:55)
[2018-10-06] MEDS: LISINOPRIL 20 MG TAB PO SCH (08:05)
[2018-10-06] MEDS: RIVAROXABAN 15 MG TAB PO SCH (08:05)
[2018-10-06] MEDS: FAMOTIDINE 20 MG TAB PO SCH (08:05)
[2018-10-06 08:12] LABS: WBC 4.4 k/uL (3.8-10.6)
[2018-10-06 08:13] LABS: HCT 33.2 % (34.0-46.0); HGB 10.8 gm/dL (11.4-16.0); RBC 3.08 m/uL (3.80-5.40)
[2018-10-06 09:30] LABS: Band Neutrophils % 1 %; Eosinophils # (M) 0.13 k/uL (0-0.7); Lymphocytes # (M) 0.53 k/uL (1.0-4.8); Monocytes # (M) 0.57 k/uL (0-1.0); Neutrophils % (M) 71 %; Nucleated Red Blood Cells 0 /100 WBC (0-0); Total Cells Counted 100
[2018-10-06 09:32] LABS: Platelet Count 46 k/uL (150-450)
--- NOTE | 2018-10-06 14:37 | P.PN ---
Subjective Progress Note Date: 10/06/18 Principal diagnosis: pancytopenia Platlet count 46, today, no s/s of bleeding Objective - Vital Signs Vital signs: Vital Signs Temp 98.8 F 10/06/18 06:00 Pulse 72 10/06/18 11:34 Resp 20 10/06/18 06:00 BP 153/64 10/06/18 06:00 Pulse Ox 95 10/06/18 06:00 Intake & Output 10/05/18 10/06/18 10/06/18 18:59 06:59 18:59 Intake Total 400 300 Balance 400 300 Intake: Oral 400 300 Other: # Voids 5 2 1 # Bowel Movements 0 - Exam - Constitutional General appearance: cooperative, no acute distress - EENT Eyes: EOMI, dentition normal ENT: hard of hearing, NA/AT, normal oropharynx - Neck no lymphadenopathy Neck: normal ROM - Respiratory Respiratory: bilateral: diminished (bases), expiratory wheezes noted - Cardiovascular Rhythm: irregularly irregular - Gastrointestinal General gastrointestinal: normal bowel sounds, soft - Integumentary Integumentary: pale - Neurologic Neurologic: CNII-XII intact - Musculoskeletal Musculoskeletal: generalized weakness, strength equal bilaterally - Psychiatric Psychiatric: appropriate affect - Labs CBC & Chem 7: 10/06/18 06:53 10/05/18 14:37 Labs: Abnormal Lab Results - Last 24 Hours (Table) 10/05/18 10/06/18 Range/Units 14:37 06:53 RBC 3.08 L (3.80-5.40) m/uL Hgb 10.8 L (11.4-16.0) gm/dL Hct 33.2 L (34.0-46.0) % MCV 107.9 H (80.0-100.0) fL Plt Count 46 L (150-450) k/uL Lymphocytes # (Manual) 0.53 L (1.0-4.8) k/uL Chloride 108 H (98-107) mmol/L Glucose 161 H (74-99) mg/dL Calcium 7.9 L (8.4-10.2) mg/dL AST 63 H (14-36) U/L Albumin 2.5 L (3.5-5.0) g/dL Assessment and Plan Plan: Assessment and Recommendations: 1. 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 Will attempt to re-drawn in am 12-28 , and run immediately. Although with concurrent acute infection cannot rule out accurate thrombocytopenia as her history has a mild thrombocytopenia at baseline and an infection may contribute to worsening of this. - Re-work-up other causes (greater than 2 years, last 2015) - Redraw in citrate tube and run immediately again on 10/06/18, in mean time may resume xarelto as long as no s/s of bleeding and platelet count remains above 45 - Would monitor to ensure this remains above 50K for next 24-48 hours. - Discussed in full with patient today - Encourage patient to increase activity, with assistance, if PT is not already following may benefot from consultation to decrease debility and muscle atrophy, also recommend incentive spirometer to bedside. Physcian Attestation: I have completed the full history and physical of this patient and agree with above dictation by Sharon Amaya NP Dictated as a scribe. We will continue to follow.
--- NOTE | 2018-10-06 15:54 | MISC ---
MISCELLANOUS REPORT Atrial fibrillation is chronic and permanent. MMODL / IJN: [id number] /
--- NOTE | 2018-10-06 17:18 | PN ---
PROGRESS NOTE DATE OF SERVICE: 10/06/2018 CHIEF COMPLAINT: Dehydration, urinary tract infection and pancytopenia. HISTORY OF PRESENT ILLNESS: This lady seems to be doing fairly well and bone marrow status is fairly stable. If things continue along these lines, she could probably go home in the next day or 2. PHYSICAL EXAM: She remains slightly pale. Her hydration is improved. Chest is improved. She is less short of breath. Cardiac exam is normal. Abdomen is soft, nontender. IMPRESSION: 1. Urinary tract infection. 2. Mild bronchospasm. 3. Pancytopenia. PLAN: Continue with current program and if she remains stable, she could probably go home in a day or 2. Will also investigate possibility of congestive heart failure. MMODL / IJN: [id number] /
[2018-10-07] MEDS: ALBUTEROL NEBULIZED 2.5 MG/3 ML INHALATION SCH ×6 (00:09→20:40)
[2018-10-07] MEDS: AMPICILLIN-SULBACTAM 1.5 GM in SODIUM CHLORIDE 0.9% 50 ML IVPB SCH ×4 (00:27→23:15)
[2018-10-07] MEDS: DEXTROSE 5%-0.45% NACL 1,000 ML IV SCH ×4 (04:06→23:16)
[2018-10-07] MEDS: FAMOTIDINE 20 MG TAB PO SCH (08:34)
[2018-10-07] MEDS: LISINOPRIL 20 MG TAB PO SCH (08:34)
[2018-10-07 11:40] LABS: Albumin 2.48 g/dL (3.80-4.90); Gamma Globulin 1.97 g/dL (0.70-1.50)
[2018-10-07] MEDS: TIMOLOL 0.5% OPHTH DROPS 5 ML BTL BOTH EYES SCH ×2 (12:20→20:03)
[2018-10-07] MEDS: BRIMONIDINE TARTRATE 0.2% DROPS 5 ML BTL BOTH EYES SCH ×2 (12:20→20:03)
[2018-10-07 13:57] LABS: HCT 34.1 % (34.0-46.0); HGB 10.7 gm/dL (11.4-16.0); MCH 34.5 pg (25.0-35.0); MCHC 31.2 g/dL (31.0-37.0); MCV 110.4 fL (80.0-100.0); Macrocytosis Marked; Mean Platelet Volume 10.8; RBC 3.09 m/uL (3.80-5.40); RDW 15.2 % (11.5-15.5); WBC 3.9 k/uL (3.8-10.6)
[2018-10-07 14:10] LABS: Band Neutrophils % 7 %; Basophils # (M) 0.04 k/uL (0-0.2); Eosinophils # (M) 0.16 k/uL (0-0.7); Lymphocytes # (M) 0.82 k/uL (1.0-4.8); Monocytes # (M) 0.16 k/uL (0-1.0); Neutrophils % (M) 63 %; Nucleated Red Blood Cells 0 /100 WBC (0-0); Total Cells Counted 100
[2018-10-07 14:11] LABS: Platelet Count 49 k/uL (150-450); Poikilocytosis (M) Present; Polychromasia Present; Rouleaux Present
[2018-10-07] MEDS: RIVAROXABAN 15 MG TAB PO SCH (14:57)
[2018-10-08] MEDS: ALBUTEROL NEBULIZED 2.5 MG/3 ML INHALATION SCH ×7 (01:30→23:11)
[2018-10-08] MEDS: TIMOLOL 0.5% OPHTH DROPS 5 ML BTL BOTH EYES SCH ×2 (08:34→20:43)
[2018-10-08] MEDS: LISINOPRIL 20 MG TAB PO SCH (08:34)
[2018-10-08] MEDS: AMPICILLIN-SULBACTAM 1.5 GM in SODIUM CHLORIDE 0.9% 50 ML IVPB SCH ×2 (08:34→15:52)
[2018-10-08] MEDS: FAMOTIDINE 20 MG TAB PO SCH (08:34)
[2018-10-08] MEDS: BRIMONIDINE TARTRATE 0.2% DROPS 5 ML BTL BOTH EYES SCH ×2 (08:35→20:43)
[2018-10-08] MEDS: DEXTROSE 5%-0.45% NACL 1,000 ML IV SCH ×2 (08:35→15:52)
[2018-10-08 10:10] LABS: HGB 11.3 gm/dL (11.4-16.0); MCH 34.6 pg (25.0-35.0); MCHC 31.5 g/dL (31.0-37.0); Macrocytosis Marked; Mean Platelet Volume 10.3; RBC 3.27 m/uL (3.80-5.40); RDW 14.8 % (11.5-15.5); WBC 4.1 k/uL (3.8-10.6)
[2018-10-08 10:13] LABS: Platelet Count 37 k/uL (150-450)
[2018-10-08] MEDS: RIVAROXABAN 15 MG TAB PO SCH (10:24)
--- NOTE | 2018-10-08 16:53 | PN ---
PROGRESS NOTE CHIEF COMPLAINT: Urinary tract infection and general malaise and debility. HISTORY OF PRESENT ILLNESS: This lady still remains quite weak. Bone marrow function has been stable. She denies fever, chills, cough, abdominal pain, shortness of breath, chest pain, etc. PHYSICAL EXAM: She is somewhat lethargic. Chest is clear. The cardiac exam is normal and. Abdomen is soft and nontender. IMPRESSION: 1. Urinary tract infection. 2. Pancytopenia. 3. Elevated blood pressure. 4. Failure to thrive. PLAN: We will hold her in the hospital for another day to see if she improves enough to be able to go home. MMODL / IJN: [id number] /
--- NOTE | 2018-10-08 17:23 | PN ---
PROGRESS NOTE CHIEF COMPLAINT: Urinary tract infection with general debility and weakness, as well as pancytopenia. HISTORY OF PRESENT ILLNESS: This lady still is lethargic and weak. Appetite is poor. She feels that she must go to a residential now for rehab. PHYSICAL EXAM: She remains pale and weak. Chest is clear. Cardiac exam is normal. Abdomen is soft, nontender. IMPRESSION: 1. General debility and failure to thrive. 2. Urinary tract infection. 3. Pancytopenia. PLAN: Refer for discharge planning for residential. MMODL / IJN: [id number] /
[2018-10-09] MEDS: AMPICILLIN-SULBACTAM 1.5 GM in SODIUM CHLORIDE 0.9% 50 ML IVPB SCH ×3 (00:11→15:49)
[2018-10-09] MEDS: DEXTROSE 5%-0.45% NACL 1,000 ML IV SCH ×3 (00:46→16:45)
[2018-10-09] MEDS: ALBUTEROL NEBULIZED 2.5 MG/3 ML INHALATION SCH ×6 (03:32→23:36)
[2018-10-09] MEDS: FAMOTIDINE 20 MG TAB PO SCH ×2 (08:21→21:23)
[2018-10-09] MEDS: LISINOPRIL 20 MG TAB PO SCH (08:21)
[2018-10-09] MEDS: TIMOLOL 0.5% OPHTH DROPS 5 ML BTL BOTH EYES SCH ×2 (08:28→21:26)
[2018-10-09] MEDS: BRIMONIDINE TARTRATE 0.2% DROPS 5 ML BTL BOTH EYES SCH ×2 (08:28→21:27)
[2018-10-09 11:22] LABS: HCT 36.4 % (34.0-46.0); HGB 11.3 gm/dL (11.4-16.0); Hypochromasia Slight; MCH 34.4 pg (25.0-35.0); MCHC 30.9 g/dL (31.0-37.0); MCV 111.2 fL (80.0-100.0); Macrocytosis Marked; Mean Platelet Volume 10.7; RBC 3.27 m/uL (3.80-5.40); RDW 14.9 % (11.5-15.5); WBC 3.8 k/uL (3.8-10.6)
[2018-10-09 11:29] LABS: Platelet Count 50 k/uL (150-450)
[2018-10-09] MEDS: RIVAROXABAN 15 MG TAB PO SCH (11:39)
[2018-10-09 13:31] LABS: Eosinophils # (M) 0.23 k/uL (0-0.7); Lymphocytes # (M) 0.87 k/uL (1.0-4.8); Monocytes # (M) 0.19 k/uL (0-1.0); Neutrophils # (M) 2.51 k/uL (1.3-7.7); Neutrophils % (M) 66 %; Nucleated Red Blood Cells 0 /100 WBC (0-0); Total Cells Counted 100
[2018-10-09 13:32] LABS: Poikilocytosis (M) Present
--- NOTE | 2018-10-09 14:55 | P.PN ---
Subjective Progress Note Date: 10/09/18 Principal diagnosis: UTI, thrombocytopenia and need for anticoagulation Pt seen in f/u, she is feeling better today, no fevers, she has a dry cough, denies bleeding or pain. Objective - Vital Signs Vital signs: Vital Signs Temp 98.5 F 10/09/18 07:00 Pulse 80 10/09/18 12:28 Resp 15 10/09/18 07:00 BP 126/70 10/09/18 08:20 Pulse Ox 94 L 10/09/18 07:00 Intake & Output 10/08/18 10/09/18 10/09/18 18:59 06:59 18:59 Intake Total 240 150 Balance 240 150 Intake: Intake, IV Titration 50 Amount Ampicillin-Sulbactam 1.5 50 gm In Sodium Chloride 0.9 % 50 ml @ 100 mls/hr IVPB Q8HR CAN Rx#:[id number] Oral 240 100 Other: # Voids 4 1 # Bowel Movements 0 - Constitutional General appearance: Present: average body habitus, cooperative, no acute distress - EENT Eyes: Present: anicteric sclerae - Respiratory Respiratory: bilateral: CTA - Cardiovascular Heart sounds: normal: S1, S2 - Gastrointestinal General gastrointestinal: Present: normal bowel sounds, soft - Integumentary Integumentary: Present: normal - Neurologic Neurologic: Present: CNII-XII intact - Musculoskeletal Musculoskeletal: Present: generalized weakness, strength equal bilaterally - Psychiatric Psychiatric: Present: A&O x's 3, appropriate affect, intact judgment & insight - Labs CBC & Chem 7: 10/09/18 10:12 10/05/18 14:37 Labs: Abnormal Lab Results - Last 24 Hours (Table) 10/09/18 Range/Units 10:12 RBC 3.27 L (3.80-5.40) m/uL Hgb 11.3 L (11.4-16.0) gm/dL MCV 111.2 H (80.0-100.0) fL MCHC 30.9 L (31.0-37.0) g/dL Plt Count 50 L (150-450) k/uL Lymphocytes # (Manual) 0.87 L (1.0-4.8) k/uL Assessment and Plan (1) Thrombocytopenia Narrative/Plan: Pt has been clinically diagnosed with early MDS/ITP and has been on monitoring, she had not followed up with Dr. Vivas since 05/2017 so, unable to say what her most recent baseline is. She requires anticoagulation and she has been very well educated on reporting bleeding. Her baseline platelet count when she was 1st diagnosed, blood had to be collected in citrate tube and ran immediately , would yield a plt count around 100K, last year that number has trended down to the 70K range. Suspect that the acute drop is going to be related to acute illness. Did suggest that she see Dr. Vivas a week or 2 after discharge to see where her platelet count is at, to ensure recovery at least to baseline. She agreed. Plt 50K today, ok to continue anticoagulation. Pt told to report immediately any s/s bleeding Current Visit: Yes Status: Chronic Priority: Medium Code(s): D69.6 - THROMBOCYTOPENIA, UNSPECIFIED SNOMED Code(s): 428034371
[2018-10-10] MEDS: DEXTROSE 5%-0.45% NACL 1,000 ML IV SCH ×2 (00:47→08:34)
[2018-10-10] MEDS: AMPICILLIN-SULBACTAM 1.5 GM in SODIUM CHLORIDE 0.9% 50 ML IVPB SCH ×2 (01:21→08:37)
[2018-10-10] MEDS: ALBUTEROL NEBULIZED 2.5 MG/3 ML INHALATION SCH ×3 (04:16→11:33)
[2018-10-10] MEDS: FAMOTIDINE 20 MG TAB PO SCH (08:34)
[2018-10-10] MEDS: BRIMONIDINE TARTRATE 0.2% DROPS 5 ML BTL BOTH EYES SCH (08:35)
[2018-10-10] MEDS: LISINOPRIL 20 MG TAB PO SCH (08:35)
[2018-10-10] MEDS: TIMOLOL 0.5% OPHTH DROPS 5 ML BTL BOTH EYES SCH (08:35)
[2018-10-10 09:22] LABS: HGB 11.7 gm/dL (11.4-16.0); MCH 34.7 pg (25.0-35.0); MCHC 31.7 g/dL (31.0-37.0); MCV 109.3 fL (80.0-100.0); Macrocytosis Marked; Mean Platelet Volume 11.7; RBC 3.39 m/uL (3.80-5.40); RDW 14.9 % (11.5-15.5); WBC 3.7 k/uL (3.8-10.6)
[2018-10-10 09:25] LABS: Platelet Count 59 k/uL (150-450)
[2018-10-10 09:48] LABS: Eosinophils # (M) 0.19 k/uL (0-0.7); Lymphocytes # (M) 0.93 k/uL (1.0-4.8); Neutrophils # (M) 2.29 k/uL (1.3-7.7); Neutrophils % (M) 62 %; Nucleated Red Blood Cells 0 /100 WBC (0-0); Total Cells Counted 100
[2018-10-10] MEDS: RIVAROXABAN 15 MG TAB PO SCH (09:51)
[2018-10-10] MEDS ORDERED: AMOXIC-POT CLAV 875-125MG 1 EACH TAB PO SCH (11:00)
--- NOTE | 2018-10-10 11:49 | DS ---
DISCHARGE SUMMARY CHIEF COMPLAINT: Urinary tract infection, septicemia. HISTORY OF PRESENT ILLNESS AND PHYSICAL EXAM: Details of this lady's history and physical can be found in the initial workup. LABORATORY STUDIES: While she was in a hospital, she had laboratory studies, details of which can be found in the laboratory section of the chart. COURSE IN THE HOSPITAL: After admission, she was placed on bedrest and started on intravenous fluids and IV antibiotics. She improved. She had difficulty with hypertension and she remained lethargic and could not ambulate. She also did have a significant thrombocytopenia for which she was seen by Hematology. It is felt that she may be developing myeloproliferative disorder. Because she cannot ambulate, she will be discharged to [facility] for physical therapy. FINAL DIAGNOSES: 1. Urinary tract infection. 2. Septicemia. 3. Hypertension. 4. Delirium. 5. General debility. 6. Pancytopenia. 7. Myeloproliferative disorder. OPERATIONS: None. CONSULTATIONS: Hematology. She is improved. MMODL / IJN: [id number] /
[2018-10-10 14:17] VITALS: BP 131/58; PULSE 73; RESP 16; TEMP 98.2
--- NOTE | 2018-10-10 14:19 | PN ---
PROGRESS NOTE DATE OF SERVICE: 10/09/2018 CHIEF COMPLAINT: Urinary tract infection, sepsis, pancytopenia and general debility. HISTORY OF PRESENT ILLNESS: This lady still is unable to walk. Temperature has been down. PHYSICAL EXAM: Chest is clear and the abdomen is soft, nontender. IMPRESSION: 1. Septicemia. 2. Urinary tract infection. 3. Pancytopenia. 4. Possible myelodysplastic syndrome. 5. Inability to ambulate. 6. Hypertension. PLAN: We are working on prison placement. MMODL / IJN: [id number] /
== END 2018-10-10 15:03 | disposition home health service (06) | DRG 872 ==
LOC: EC 22:09 → 1SOBS 10-02 02:11 → OBSVTOIN 10-02 23:04 → 4MS4W 10-03 20:03 → UNDODISIN 10-09 18:43
PROVIDERS: ADMIT Family Medicine; ATTEND Family Medicine
DX: A41.9 Sepsis, unspecified organism (principal); C94.6 Myelodysplastic disease, not elsewhere classified; D61.818 Other pancytopenia; N39.0 Urinary tract infection, site not specified; R17 Unspecified jaundice; E78.5 Hyperlipidemia, unspecified; E86.0 Dehydration; E89.0 Postprocedural hypothyroidism; H35.30 Unspecified macular degeneration; H40.9 Unspecified glaucoma; I10 Essential (primary) hypertension; I48.2 Chronic atrial fibrillation; Z79.01 Long term (current) use of anticoagulants; J98.01 Acute bronchospasm; R62.7 Adult failure to thrive; Z80.1 Family history of malignant neoplasm of trachea, bronchus and lung; Z82.5 Family history of asthma and other chronic lower respiratory diseases; Z87.891 Personal history of nicotine dependence; Z95.0 Presence of cardiac pacemaker; R41.0 Disorientation, unspecified; R53.81 Other malaise; I44.0 Atrioventricular block, first degree; Z90.49 Acquired absence of other specified parts of digestive tract; Z88.5 Allergy status to narcotic agent; Z88.2 Allergy status to sulfonamides; Z88.8 Allergy status to other drugs, medicaments and biological substances
CPT/HCPCS: 36415; 71046; 74018; 74177; 80053; 80074; 81001; 82150; 82550; 82553; 82607; 82728; 82746; 82784; 83036; 83540; 83550; 83605; 83615; 83690; 83735; 83880; 83883; 83921; 84165; 84484; 85025; 85027; 85045; 85610; 85730; 86334; 87077; 87086; 87186; 94640; 96361; 96374; 99285

== ENCOUNTER → 2019-04-18 | Outpatient (CLI) | payer MEDICARE ==
[2019-04-18 10:44] VITALS: BP 146/69; PULSE 69; RESP 18; TEMP 98; BMI 27.8
--- NOTE | 2019-04-18 11:25 | P.GSHP ---
History of Present Illness H&P Date: 04/18/19 Chief Complaint: Bloody left nipple discharge The patient is an 88 year old white female with a complaint of left breast bloody nipple discharge. This occurred approximately 2 weeks ago and was persistent for approximately 2 days. He has since subsided. She has not had a mammogram for several years. The patient has no lumps in her breasts. She has no history of any trauma or infection the breast. She is complaining of any pain in the breast. Of concern is the fact that she did have some vaginal bloody discharge over the past several days. Family History: mother: ovarian cancer at 26, at 26 3 maternal aunt: breast cancer, esophageal cancer, lung cancer father: lung cancer Hormonal History: menarche: 10 , breast fed: yes, first at 22 BCP: none Hormones: none Past surgical history: 1. Gallbladder 2. thyroid resection Medical history: 1.colonoscopy and EGD done last week, negative [facility] 3. pacemaker\atrial fibrillation, patient is on xeralto Social history: Smoke: Negative Alcohol: Negative Drugs: Negative - Constitutional Constitutional: Denies chills, Denies fever - EENT Comment: macular degeneration Eyes: bilateral blurred vision Ears: deny: decreased hearing, tinnitus Ears, nose, mouth and throat: Denies headache, Denies sore throat - Breasts Breasts: bilateral: as per HPI - Cardiovascular Cardiovascular: Denies chest pain, Denies shortness of breath - Respiratory Respiratory: Denies cough, Denies 7 - Gastrointestinal Gastrointestinal: Reports diarrhea, Denies abdominal pain, Denies nausea, Denies vomiting - Genitourinary (Female) Comment: uterine prolapse - Menstruation Menstruation: Reports postmenopausal - Musculoskeletal Comment: arthritis - Integumentary Integumentary: Denies pruritus, Denies rash - Neurological Neurological: Reports weakness - Psychiatric Psychiatric: Denies anxiety, Denies depression - Endocrine Endocrine: Denies fatigue, Denies weight change - Hematologic/Lymphatic Comment: Xeralto - Allergic/Immunologic Allergic/Immunologic: Reports as per HPI Past Medical History Past Medical History: Atrial Fibrillation, Chest Pain / Angina, Hyperlipidemia, Hypertension, Syncope Additional Past Medical History / Comment(s): hypokalemia, 1st degree heart block, macular degeneration, glaucoma History of Any Multi-Drug Resistant Organisms: None Reported Past Surgical History: Cholecystectomy, Pacemaker Additional Past Surgical History / Comment(s): thyroidectomy Past Anesthesia/Blood Transfusion Reactions: No Reported Reaction Additional Past Anesthesia/Blood Transfusion Reaction / Comment(s): NEVER RECIEVED BLOOD. Type of Cardiac Device: Permanent Pacemaker Device Placement Date:: 2015 Past Psychological History: No Psychological Hx Reported, Depression Additional Psychological History / Comment(s): PT LIVES CURRENTLY WITH MOO SHARMA) AND LUCILA'S . NORMALLY BEFORE THIS WEAKNESS SHE HAS BEEN INDEPENDENT WITH HER OWN ADL'S. SHE HAS VOLUNTARILY GIVEN UP DRIVING. Smoking Status: Former smoker Past Alcohol Use History: Rare Past Drug Use History: None Reported - Past Family History Father Family Medical History: Cancer, COPD Additional Family Medical History / Comment(s): FATHER OF LUNG CA Mother Family Medical History: Cancer Additional Family Medical History / Comment(s): MOTHER OF SOME FORM OF CA WHEN PT WAS 2 YRS OLD. Medications and Allergies Home Medications Medication Instructions Recorded Confirmed Type Rivaroxaban [Xarelto] 15 mg PO DAILY 11/03/17 04/18/19 History Brimonidine Tartrate/Timolol 1 drop BOTH EYES BID 10/01/18 04/18/19 History [Combigan 0.2%-0.5% Eye Drops] Furosemide [Lasix] 20 mg PO DAILY 04/18/19 04/18/19 History Potassium Chloride [Klor-Con 20 20 meq PO DAILY 04/18/19 04/18/19 History Packets] Allergies Allergy/AdvReac Type Severity Reaction Status Date / Time morphine AdvReac Intermediate Nausea & Verified 04/18/19 10:09 Vomiting Sulfa (Sulfonamide AdvReac Intermediate Nausea & Verified 04/18/19 10:09 Antibiotics) Vomiting moxifloxacin [From Avelox] AdvReac Unknown Unverified 04/18/19 10:09 Bchyysv-Yyx-Wid Reductase AdvReac Nausea Verified 04/18/19 10:09 Inhibitor sulfamethoxazole AdvReac Unknown Unverified 04/18/19 10:09 [From Bactrim] trimethoprim [From Bactrim] AdvReac Unknown Unverified 04/18/19 10:09 Surgical - Exam Vital Signs Temp Pulse Resp BP Pulse Ox 98.0 F 69 18 146/69 97 04/18/19 10:39 04/18/19 10:39 04/18/19 10:39 07/12/19 10:39 04/18/19 10:39 BMI 27.8 - General well developed, well nourished, no distress - Eyes normal ocular movement - ENT no hearing loss, no congestion - Neck no masses, trachea midline - Respiratory normal respiratory effort, clear to auscultation - Cardiovascular Rhythm: regular Heart Sounds: normal: S1, S2 - Abdomen Abdomen: soft, non tender, no guarding, no rigid, no rebound - Integumentary normal turgor - Neurologic no disoriented, no combative - Musculoskeletal normal gait, normal posture - Psychiatric oriented to time, oriented to person, oriented to place, speech is normal, memory intact breast exam: Breasts: right breast: Multi-positional exam no dominant masses or nodules of concern, fibrocystic changes, examination reveals nipple discharge at the 12 o'clock position which was guiaced and this was positive for blood Right axilla: No adenopathy of concern Left breast: Multiple positional exam no dominant masses or nodules of concern, fibrocystic changes Left axilla: No adenopathy of concern Assessment and Plan Assessment: Impression: 1. Right breast bloody nipple discharge 2. Fibrocystic breast changes 3. Positive family history of cancer 4.arthritis 5. atrial fibrilation 6. uterine prolapse 7. new onset vaginal bleeding Plan: 1. bilateral mammogram and follow-up. 2. 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 Medical management of medical conditions CC Dr. Doyle
== END ==
LOC: WWCWWP 09:40
PROVIDERS: ATTEND Surgery
DX: Z53.9 Procedure and treatment not carried out, unspecified reason (principal)

== ENCOUNTER → 2019-04-21 | Outpatient (CLI) | payer MEDICARE ==
--- NOTE | 2019-04-22 07:49 | MM ---
Reason for exam: clinical finding. Last mammogram was performed 7 years and 8 months ago. History: Patient is postmenopausal. Family history of premenopausal breast cancer in aunt at age 30. Indicated problem(s): bloody discharge in the right breast. Physical Findings: Nurse Summary: 0.5 x 0.5cm nodule in the left breast at 12 o'clock (nurse ts). MG 3D Diag Mammo W/Cad ZARA Bilateral CC and MLO view(s) were taken. Prior study comparison: August 17, 2011, CAD bilateral diagnostic mammogram. June 01, 2010, bilateral digital screening mammogram. The breast tissue is heterogeneously dense. This may lower the sensitivity of mammography. Benign appearing bilateral calcifications. These results were verbally communicated with the patient and result sheet given to the patient on 04/21/19. ASSESSMENT: Incomplete: need additional imaging evaluation, BI-RAD 0 RECOMMENDATION: Ultrasound of both breasts.
--- NOTE | 2019-04-22 07:53 | USB ---
Reason for exam: additional evaluation requested from abnormal screening. History: Patient is postmenopausal. Family history of premenopausal breast cancer in aunt at age 30. US Breast Limited BILAT Right limited breast ultrasound including focal area of concern, retroareolar and axilla demonstrates a 0.2 x 0.3 x 0.1cm oval, hypoechoic lesion too small to characterize at 12 o'clock, a 0.5 x 0.2cm oval, hypoechoic lesion too small to characterize at 3 o'clock, duct ectasia at 8 o'clock, a 0.3 x 0.3 x 0.2cm oval, hypoechoic lesion too small to characterize at 9 o'clock, a calcification at 11 o'clock, a 0.4 x 0.5 x 0.2cm oval, cystic lesion at the posterior nipple and a 0.3 x 0.3cm solid lesion in duct at 9 o'clock posterior nipple. Left limited breast ultrasound including focal area of concern, retroareolar and axilla demonstrates ductal ectasia at the posterior nipple and a calcification at 1 o'clock. These results were verbally communicated with the patient and result sheet given to the patient on 04/21/19. ASSESSMENT: Suspicious, BI-RAD 4 RECOMMENDATION: Surgical consultation and ultrasound core biopsy of the right breast. Called with mammographic findings and has scheduled an appointment for the patient for 06/05/19 at 9:[address] Panda. Biopsy scheduled for 05/19/19. PRELIMINARY REPORT CALLED AND FAXED TO DR. PANDA ON 04/22/19.
== END | disposition home or self-care (01) ==
LOC: RADMAMWWP 12:40
PROVIDERS: ATTEND Surgery
DX: N64.52 Nipple discharge (principal); R92.8 Other abnormal and inconclusive findings on diagnostic imaging of breast
CPT/HCPCS: 77066; 76642; G0279; 77062

== ENCOUNTER → 2019-05-19 | Day surgery (SDC) | payer MEDICARE ==
[2019-05-19 13:59] VITALS: BMI 27.4
[2019-05-19 14:55] VITALS: BP 118/70; PULSE 70; RESP 16; TEMP 98.2
--- NOTE | 2019-05-19 15:37 | USB ---
EXAMINATION TYPE: US biopsy breast VAD RT DATE OF EXAM: 05/19/2019 CLINICAL HISTORY: R92.8 ABN MAMMO. TECHNIQUE: Ultrasound guided core biopsy of right 9:00 breast. COMPARISON: NONE FINDINGS: The procedure of ultrasound guided core biopsy was explained to the patient. Benefits, alternatives, and risks were discussed. An informed consent was then obtained. The patient was placed in supine positioning for imaging and for the procedure. The overlying skin was prepped and draped in usual sterile fashion. Lidocaine buffered with bicarbonate was used as anesthetic into the skin and subcutaneous tissue up to area of concern in the right 9:00 breast. A makayla was made with surgical scalpel. Under ultrasound guidance, a 12-gauge vacuum assisted biopsy gun device was used to obtain 2 core samples. Following this, a biopsy clip was left in lesion. The patient tolerated the procedure well without any immediate complication. The patient was kept in the radiology department for short stay after the procedure and then discharged home in stable condition. IMPRESSION: Successful, uncomplicated ultrasound guided core biopsy of area of concern in the right 9:00 breast, full pathology results to follow. Pathology Results: High Risk RIGHT BREAST, 9:00, ULTRASOUND GUIDED CORE BIOPSY: Intraductal papilloma and background fibrocystic changes including rare microcalcifications. Recommendation Surgical consult of the right breast. (intraductal papilloma) MTDD
== END ==
LOC: RADUSWWP 13:00
PROVIDERS: ATTEND Surgery
DX: D24.1 Benign neoplasm of right breast (principal); N60.11 Diffuse cystic mastopathy of right breast; R92.0 Mammographic microcalcification found on diagnostic imaging of breast; R92.8 Other abnormal and inconclusive findings on diagnostic imaging of breast; Z88.1 Allergy status to other antibiotic agents; Z88.5 Allergy status to narcotic agent; Z88.2 Allergy status to sulfonamides; Z88.8 Allergy status to other drugs, medicaments and biological substances
CPT/HCPCS: 88305; 19083; A4648; J2001

== ENCOUNTER → 2019-05-26 | Outpatient (CLI) | payer MEDICARE ==
[2019-05-26 14:03] VITALS: BP 185/82; PULSE 75; RESP 16; TEMP 98.4; BMI 27.1
--- NOTE | 2019-05-26 14:32 | P.PN ---
Subjective Progress Note Date: 05/26/19 Principal diagnosis: Intraductal papilloma The patient is an 88-year-old white female status post a [place] guided core biopsy of the right breast. Pathology revealed an intraductal papilloma. This was performed and [id number]. Postprocedure the patient developed marked ecchymosi s of the breast with some hematoma formation. She states that it has been uncomfortable for her because she is improving at this time. Objective - Vital Signs Vital signs: Vital Signs Temp 98.4 F 05/26/19 13:46 Pulse 75 05/26/19 13:46 Resp 16 05/26/19 13:46 BP 185/82 05/26/19 13:46 Pulse Ox 99 05/26/19 13:46 Intake & Output 05/25/19 05/26/19 05/26/19 18:59 06:59 18:59 Weight 71.668 kg - Constitutional General appearance: Present: average body habitus - EENT Eyes: Present: EOMI ENT: Present: hearing grossly normal - Neck Neck: Present: normal ROM - Respiratory Respiratory: bilateral: CTA - Cardiovascular Heart sounds: normal: S1, S2 - Integumentary Integumentary: Present: normal turgor - Musculoskeletal Musculoskeletal: Present: gait normal - Psychiatric Psychiatric: Present: A&O x's 3, appropriate affect, intact judgment & insight - Additional findings Additional findings: Right breast the entire breast appears to be ecchymotic There is a hematoma approximately 2 cm in size at the 9:00 area of the breast Assessment and Plan Assessment: Impression: 1. Atrial fibrillation 2. Intraductal papilloma 3. Post ultrasound hematoma/ecchymosis resolving Plan: 1. Medical management of medical conditions 2. Consider needle local excisional biopsy for intraductal papilloma however at 88 years of age may wash this area conservatively 3. Follow-up in 6 weeks to reassess resolving hematoma/ecchymosis CC: DR. Doyle
== END | disposition home or self-care (01) ==
LOC: WWCWWP 13:27
PROVIDERS: ATTEND Surgery
DX: Z53.9 Procedure and treatment not carried out, unspecified reason (principal)